=== PATIENT | male | born 1985 | race Caucasian/White ===

== ENCOUNTER 2019-04-18 02:25 | Emergency (ER) | payer OTHER ==
[2019-04-18 02:33] VITALS: BP 116/67
[2019-04-18] MEDS ORDERED: HYDROcod/ACETAM 5/325 MG TABLET PO STA (02:53)
[2019-04-18] MEDS ORDERED: HYDROcod/ACET 5/325 Prepack 4 PO STA (02:53)
[2019-04-18] MEDS ORDERED: KETOROLAC 60 MG/2 ML VIAL IM STA (02:53)
--- NOTE | 2019-04-18 02:54 | ED Physician Documentation ---
PD HPI LOWER EXT INJURY - Stated complaint Stated Complaint: L/R LEG INJURY - Chief complaint Chief Complaint: Ext Problem - History obtained from History obtained from: Patient - History of Present Illness PD HPI LOW EXT INJURY LOCATION: Right, Left, Ankle Type of injury: Fall (He states he slipped on some ice and fell backwards with it twisting of both ankles. He has more pain in the left but still her is hurting with swelling in both ankles laterally.) Where injury occurred: Home Timing - onset: Today (just [employer]) Timing - details: Abrupt onset Worsened by: Moving, Palpating, Other (weight bearing) Associated symptoms: Swelling. No: Weakness, Numbness Similar symptoms before: Has not had sx before Review of Systems Skin: denies: Abrasion (s), Laceration (s) Musculoskeletal: reports: Extremity pain, Extremity swelling Neurologic: denies: Focal weakness, Numbness, Altered mental status, Headache, Head injury, LOC PD PAST MEDICAL HISTORY - Past Medical History Cardiovascular: None Respiratory: None Endocrine/Autoimmune: None - Present Medications Home Medications: Ambulatory Orders Medication Instructions Recorded Confirmed Hydrocodone/Acetaminophen [Dexter 1 each PO Q6H PRN #15 tablet 04/18/19 5-325 Tablet] Ibuprofen [Motrin] 600 mg PO TID PRN #25 tab 04/18/19 - Allergies Allergies/Adverse Reactions: Allergies Allergy/AdvReac Type Severity Reaction Status Date / Time No Known Drug Allergies Allergy Verified 04/18/19 02:54 PD ED PE NORMAL - Vitals Vital signs reviewed: Yes - General General: Alert and oriented X 3, Well developed/nourished, Other (Seems uncomfortable with motion of either ankle. The left is more tender.) - HEENT HEENT: Atraumatic - Neck Neck: Supple, no meningeal sign, No bony TTP, No adenopathy - Cardiac Cardiac: RRR, No murmur - Respiratory Respiratory: Clear bilaterally, Other (no chestwall tenderness) - Abdomen Abdomen: Soft, Non tender - Back Back: No CVA TTP, No spinal TTP - Derm Derm: Normal color, Warm and dry - Extremities Extremities: Other (Both ankles are tender laterally. The Achilles is firm and intact on both sides. The right ankle shows moderate swelling and tenderness over the infra malleolar aspect. Medial aspect is nontender. The foot itself is not tender. The left ankle shows moderate tenderness with swelling over the distal fibula area. Medial aspect is slightly tender. There is no obvious laxity noted on stress testing but that is very limited because of discomfort. The midfoot and toes are not tender. There is good pulses color and cap refill in both feet and toes.) - Neuro Neuro: Alert and oriented X 3, No motor deficit, No sensory deficit, Normal speech Results - Vitals Vitals: Vital Signs - 24 hr 04/18/19 02:30 Temperature 37.1 C Heart Rate 88 Respiratory 14 Rate Blood Pressure 116/67 O2 Saturation 99 Oxygen O2 Source Room air - Rads (name of study) Right ankle and left ankle Radiology: Prelim report reviewed (No acute fracture of the right ankle. The left ankle shows an oblique minimally displaced fracture of the distal fibula. The medial malleolus is normal.), EMP read contemporaneously, See rad report Procedures - Splint (location) both ankles Splint applied by: Tech Type of splint: Fiberglass, Stirrup, Other (boot orthosis of right ankle) Other: Patient tolerated well, No complications, Neurovascular intact, Crutches provided PD MEDICAL DECISION MAKING - ED course Complexity details: reviewed results, re-evaluated patient, considered differential, d/w patient Departure - Departure Disposition: 01 Home, Self Care Clinical Impression: Fall from slip, trip, or stumble Qualifiers: Encounter type: initial encounter Qualified Code(s): W01.0XXA - Fall on same level from slipping, tripping and stumbling without subsequent striking against object, initial encounter Right ankle sprain Qualifiers: Encounter type: initial encounter Involved ligament of ankle: unspecified ligament Qualified Code(s): S93.401A - Sprain of unspecified ligament of right ankle, initial encounter Fracture of distal fibula Qualifiers: Encounter type: initial encounter Fracture type: closed Fracture morphology: unspecified fracture morphology Laterality: left Qualified Code(s): S82.832A - Other fracture of upper and lower end of left fibula, initial encounter for closed fracture Condition: Stable Record reviewed to determine appropriate education?: Yes Instructions: ED Fx Ankle Lateral Malleolus, ED Sprain Ankle Follow-Up: [facility] [Provider Group] Prescriptions: Hydrocodone/Acetaminophen [Dexter 5-325 Tablet] 1 each PO Q6H PRN #15 tablet PRN Reason: Pain Ibuprofen [Motrin] 600 mg PO TID PRN #25 tab PRN Reason: Pain Comments: Your right ankle x-ray does not show any acute fractures. Obviously with the swelling and pain of it, its sprained with the ligaments and muscles. This will need some protection for range of motion and can be treated with a boot orthosis. It would be okay to put weight bearing onto this with it supported. The left ankle distal fibula (the outer aspect bone of the ankle) is fractured. This will also want to be held still unsupported but would benefit from a little snugger and sturdier support initially so we will have a splint of fiberglass on it. Nonweightbearing initially on the left ankle until follow-up. Follow-up with your primary care in this coming week to about a week from now. Call for an appointment. Ibuprofen 3 times a day. Add Tylenol or hydrocodone if needed for pain. Ice elevate and rest the ankle as often to reduce swelling. Forms: Activity restrictions
--- NOTE | 2019-04-18 03:35 | XRAY Report ---
Reason: slipped and fell; injury both ankles. Procedure Date: 04/18/2019 Accession Number: [id number] / [id number] Procedure: XR - Ankle 3 View BILAT CPT Code: Final Report FULL RESULT: EXAMS: 1. Right Ankle Radiography 2. Left Ankle Radiography EXAM DATE: 04/18/2019 03:24 AM. CLINICAL HISTORY: Slipped and fell; injury both ankles. COMPARISON: None. TECHNIQUE: 3 views each ankle. FINDINGS: Right Ankle: Bones: Normal. No fractures or bone lesions. Joints: Normal. No effusion. No subluxations. The ankle mortise is normally aligned. Soft Tissues: Lateral soft tissue swelling. No radiopaque foreign body. Left Ankle: Bones: Oblique, mildly displaced fracture of the distal fibular shaft. Joints: Normal. No effusion. No subluxations. The ankle mortise is normally aligned. Soft Tissues: Lateral soft tissue swelling. No radiopaque foreign body. IMPRESSION: Oblique, mildly displaced fracture of the distal left fibular shaft. No evidence of right ankle fracture. RADIA
== END 2019-04-18 04:49 | disposition home or self-care (01) ==
LOC: ED 02:25
DX: S82.832A Other fracture of upper and lower end of left fibula, initial encounter for closed fracture (principal); S93.401A Sprain of unspecified ligament of right ankle, initial encounter; W00.0XXA Fall on same level due to ice and snow, initial encounter; Y93.E9 Activity, other interior property and clothing maintenance; Y92.008 Other place in unspecified non-institutional (private) residence as the place of occurrence of the external cause
CPT/HCPCS: 73610; 96372; 99283; 99284; A9270

== ENCOUNTER 2019-04-23 08:37 | Day surgery (SDC) | payer OTHER ==
[~2019-04-23 08:37] MED LIST: CEFAZOLIN SODIUM IN 0.9 % NACL 2 GM/100 ML BAG IV ONE
[2019-04-23] MEDS ORDERED: ONDANSETRON 4 MG/2 ML VIAL IVP ONE (08:38)
[2019-04-23] MEDS ORDERED: DEXAMETHASONE 4 MG/ML VIAL IVP ONE (08:38)
[2019-04-23] MEDS ORDERED: fentaNYL 100 MCG/2 ML VIAL IVP ONE (08:38)
[2019-04-23] MEDS ORDERED: fentaNYL 250 MCG/5 ML VIAL IVP ONE (08:38)
[2019-04-23] MEDS ORDERED: PROPOFOL 200 MG/20 ML VIAL IVP ONE (08:38)
[2019-04-23] MEDS ORDERED: ACETAMINOPHEN 1,000 MG/100 ML 100 ML IV ONE (08:38)
[2019-04-23] MEDS ORDERED: KETOROLAC 30 MG/ML VIAL IVP ONE (08:38)
[2019-04-23] MEDS ORDERED: MIDAZOLAM 2 MG/2 ML VIAL IVP ONE (08:38)
[2019-04-23] MEDS ORDERED: LACTATED RINGERS 1,000 ML IV ONE ×2 (08:40→12:08)
--- NOTE | 2019-04-23 09:26 | ANESTHESIA ---
Pre-Anesthesia VS, & Labs - Diagnosis Left distal fibula - Procedure ORIF left fibula Vital Signs: Temp Pulse Resp BP Pulse Ox 36 C L 73 18 149/96 H 97 04/23/19 08:44 04/23/19 08:44 04/23/19 08:44 04/23/19 08:44 04/23/19 08:44 Height 5 ft 7 in Weight (kg) 86.18 kg Body Mass Index 30.5 - NPO >8 hours - Lab Results Lab results reviewed: No Home Medications and Allergies Allergies/Adverse Reactions: Allergies Allergy/AdvReac Type Severity Reaction Status Date / Time No Known Drug Allergies Allergy Verified 04/18/19 02:54 Anes History & Medical History - Anesthetic History Anesthesia Complications: reports: No previous complications Family history of Anesthesia Complications: Denies Family history of Malignant Hyperthermia: Denies - Medical History Cardiovascular: reports: None Pulmonary: reports: None Gastrointestinal: reports: None Urinary: reports: None Neuro: reports: None Musculoskeletal: reports: Other Endocrine/Autoimmune: reports: None Blood Disorders: reports: None Skin: reports: None Smoking Status: Never smoker Psychosocial: reports: No issues indicated - Surgical History Eyes Ears Nose Throat (EENT): Other Exam General: Alert, Oriented x3, Cooperative Dental: WNL Mouth Opening: Greater than 4 Fingerbreadths Neck Mobility: Normal Mallampati classification: I Thyromental Distance: greater than 6 cm Respiratory: Lungs clear Cardiovascular: Regular rate Mental/Cognitive Status: Alert/Oriented X3 Cognitive Status: Within normal limits Plan Anesthesia Type: General Consent for Procedure(s) Verified and Reviewed: Yes Code Status: Attempt Resuscitation ASA classification: 1-Healthy patient Is this case an emergency?: No
[2019-04-23] MEDS ORDERED: BUPIVACAINE 0.25% PF 30 ML VIAL ONE (09:45)
[2019-04-23] MEDS ORDERED: BUPIVACAINE 0.25% PF 30 ML VIAL SUBQ ONE ×2 (10:59)
[2019-04-23] MEDS ORDERED: LIDOCAINE 1%-EPI 1:100000 20 ML MDV SUBQ ONE (10:59)
[2019-04-23] MEDS ORDERED: ONDANSETRON 4 MG/2 ML VIAL IVP PRN (12:11)
[2019-04-23] MEDS ORDERED: oxyCODONE 5 MG TABLET PO PRN (12:11)
[2019-04-23] MEDS: HYDROmorphone 1 MG/ML CARPUJECT ONE ×2 (12:12→12:34)
--- NOTE | 2019-04-23 12:18 | OPERATIVE REPORT ---
Operative Report - Other Other Information/Narrative: Date of Surgery: 23 April 2019 Pre-Op Diagnosis: Left ankle Fields B fracture Procedure: Open reduction internal fixation comminuted left distal fibula fracture Postop Diagnosis: Same Primary Surgeon: Adam Salazar Secondary Surgeon: None Complications: None Tourniquet Time: 57 minutes EBL: 5 cc Implants: 3.5 mm lag screw, 2.0 mm lag screw, 6 hole locking plate, 3.5 mm cortical screws x2, 4.0 mm locking screw x1, 4.0 cancellus screw x1 Postoperative Protocol: No weightbearing 2 weeks. Splint off and x-rays at 2- week appointment. Sutures out at 2 weeks. 2 to 6 weeks nonweightbearing in a boot but range of motion okay. Gradual weightbearing after 6 weeks. Impact activities and normal shoes after 3 months. Indication For Surgery: 33-year-old male sustained a fracture of goal and a sprain of his right ankle last Friday when he slipped down a step. He was placed into a plantarflexed splint in the emergency room after the couple days ago for evaluation. The fracture was displaced and intra-articular. I discussed with him treatment options to include nonoperative and operative measures. After full discussion he decided to move forward with surgery to restore his anatomy and aid in rapid healing. I discussed the risk of symptomatic implants and damage to the superficial peroneal nerve. The risks, benefits, and alternatives were discussed. Risks include pain, bleeding, infection, damage to nearby structures, numbness, lack of symptom relief, implant complications, nonunion, need for further surgery, DVT, PE, stroke, and . Written consent was obtained. Procedure in Detail: The patient was met in the pre-operative hold area on the day of the procedure. The operative extremity was signed and questions were answered. The patient was brought to the operating room and a general anesthetic was administered. X-rays of the normal contralateral ankle were taken for comparison later. Supine position was used and all bony prominences were padded. Standard prepping and draping was performed. A time out confirmed patient identification, laterality, procedure, allergies, antibiotics, and images. An Esmarch was used to exsanguinate the limb and the tourniquet was elevated to 250 mmHg. A direct lateral approach was made to the fibula utilizing his 6 cm incision. Scissor dissection was used proximally and knife dissection distally. The superficial peroneal nerve was not seen within the interval. The fracture was identified and cleared from all blocks to reduction. There was noted to be a small comminuted fragment posteriorly at the apex. There is also a larger fragment anteriorly at the edge of the fracture with a portion of the syndesmotic ligaments attached to it. An anatomic reduction was performed and held with 2 [id number] clamps. A 3.5 mm lag screw was placed and a 6 hole plate was placed laterally. The plate was reduced down to the bone with the proximal screw. Distal screws were placed and one was found to not have good purchase so it was replaced with a locking screw. An additional proximal screw was then placed. I then placed a 2.0 millimeters screw in lag fashion for the small anterior fragment and this held it nicely with excellent purchase. X-rays were taken and all implants were safe and the reduction was anatomic. Stress external rotation was applied and the syndesmosis was found to be stable. Cotton test was also performed and the syndesmosis was stable. The wound was then irrigated copiously and closed in a layered fashion with 0 Vicryl and the periosteum 2-0 Vicryl in the dermis and a running nylon in the skin. 20 cc of local were put about the incision. A sterile dressing and a splint was applied. He was brought out of the operating room and to recovery without incident.
[2019-04-23] MEDS ORDERED: HYDROmorphone 1 MG/ML CARPUJECT ONE (12:48)
[2019-04-23 13:44] VITALS: BP 125/67
--- NOTE | 2019-04-23 14:27 | XRAY Report ---
Reason: ORIF LEFT FIBULA Procedure Date: 04/23/2019 Accession Number: [id number] / [id number] Procedure: FL - OR C-Arm Procedure CPT Code: Final Report FULL RESULT: EXAM: FLUOROSCOPIC GUIDANCE EXAM DATE: 04/23/2019 12:30 PM. CLINICAL HISTORY: ORIF LEFT FIBULA. COMPARISON: ANKLE 3 VIEW BILAT 04/18/2019 2:50 AM. FINDINGS: Open reduction internal fixation with lateral plate and screws at the distal fibula for the fibular fracture. Alignment appears near-anatomic. IMPRESSION: Fluoroscopic guidance provided for Dr. Salazar. Total fluoroscopy time: 0.2 minutes. Number of images: 4. RADIA
--- NOTE | 2019-04-25 15:14 | ANESTHESIA PROCEDURE NOTE ---
Diagnosis: Leftn Distal fibula fracture. S/P ORIF fibula fracture Procedure: Left popliteal block Consent for Procedure(s) Verified and Reviewed: Yes Height and Weight: Height 5 ft 7 in Weight (kg) 86.18 kg Body Mass Index 30.5 Vital Signs: Temp Pulse Resp BP Pulse Ox 36.3 C L 74 16 125/67 97 04/23/19 13:43 04/23/19 13:43 04/23/19 13:43 04/23/19 13:43 04/23/19 13:43 Allergies No Known Drug Allergies Allergy (Verified 04/18/19 02:54) Requesting Provider: Marie Location: Left ASA classification: 1-Healthy patient Is this case an emergency?: No Anes. Monitoring and Equipment: Non-invasive BP, Pulse oximetery Anes. Procedure Start Time: 12:20 Anes. Procedure Stop Time: 12:30 Procedure Notes: Called for rescue block for patient having 8/10 pain. Patient's left posterior leg was prepped with chlorohexadine and the sciatic nerve was imaged using ultrasound. A 22G blunted stimiplex needle was advanced towards nerve sheath and a total of 30ml of 0.2% Ropivicaine with 4mg Decadron was injected around the nerve with adequate spread noted. Patient tolerated the procedure well. Full evaluation is pending.
== END 2019-04-23 08:38 | disposition home or self-care (01) ==
LOC: SDS 08:37
PROVIDERS: ATTEND Orthopaedic Surgery
PROC: 0QSK04Z Reposition Left Fibula with Internal Fixation Device, Open Approach (ICD-10-PCS; principal; 2019-04-23 10:00)
DX: S82.62XA Displaced fracture of lateral malleolus of left fibula, initial encounter for closed fracture (principal); Z87.891 Personal history of nicotine dependence